=== PATIENT | male | born 1955 | race Two or more races ===

== ENCOUNTER 2017-08-03 16:30 | Emergency (ER) | payer OTHER ==
[2017-08-03] MEDS: HYDROCODONE/APAP (5/325) TAB PO (19:27)
== END 2017-08-03 22:20 | disposition home or self-care (01) ==
LOC: FTE 16:30
DX: S00.93XA Contusion of unspecified part of head, initial encounter (principal); R51 Headache; W22.8XXA Striking against or struck by other objects, initial encounter; Y92.9 Unspecified place or not applicable
CPT/HCPCS: 70450; 99284-25

== ENCOUNTER 2018-08-02 20:08 | Inpatient (IN) | payer OTHER ==
[2018-08-02 20:21] LABS: ADD MAN DIFF? NO
[2018-08-02] MEDS: NITROGLYCERIN (SL) 0.4 MG TAB SL (20:25)
[2018-08-02 20:38] LABS: BASOPHIL # 0.1 10^3/ul (0.0-0.1); BASOPHILS % 0.6 % (0.0-2.0); EOSINOPHILS # 0.1 10^3/ul (0.0-0.5); HEMATOCRIT 43.5 % (42.0-52.0); HEMOGLOBIN 14.4 g/dl (14.0-18.0); LYMPHOCYTES # 3.2 10^3/ul (0.8-2.9); LYMPHOCYTES % 40.8 % (15.0-51.0); MEAN CORPUSCULAR HGB CONC 33.1 g/dl (32.0-37.0); MEAN CORPUSCULAR VOLUME 90.6 fl (82.0-101.0); MEAN PLATELET VOLUME 10.3 fl (7.4-10.4); MONOCYTE # 0.7 10^3/ul (0.3-0.9); MONOCYTES % 9.4 % (0.0-11.0); NEUTROPHIL # 3.7 10^3/ul (1.6-7.5); NEUTROPHILS % 47.7 % (39.0-77.0); PLATELET COUNT 232 10^3/UL (140-415); RED CELL DISTRIBUTION WIDTH 13.3 % (11.5-14.5)
[2018-08-02 20:38] LABS: WHITE BLOOD COUNT 7.7 10^3/ul (4.8-10.8)
[2018-08-02] MEDS ORDERED: NITROGLYCERIN (IC) 100 MCG/ML INJ (20:44)
[2018-08-02] MEDS ORDERED: IODIXANOL LOCM 100 ML BTL (20:44)
[2018-08-02] MEDS ORDERED: HEPARIN 1000 UNITS/ML 10 ML INJ (20:44)
[2018-08-02] MEDS ORDERED: VERAPAMIL 5 MG INJ (20:44)
[2018-08-02] MEDS ORDERED: LIDOCAINE 1% (MDV) 20 ML INJ (20:44)
[2018-08-02] MEDS ORDERED: MIDAZOLAM 1 MG/ML 2 ML INJ ×2 (20:44→21:44)
[2018-08-02] MEDS ORDERED: FENTAnyl 50 MCG/ML VIAL (20:44)
[2018-08-02 20:48] LABS: ANION GAP 15 (5-13); BLOOD UREA NITROGEN 13 mg/dl (7-20); CALCIUM 10.4 mg/dl (8.4-10.2); CARBON DIOXIDE 23 mmol/L (21-31); CHLORIDE 101 mmol/L (97-110); CREATININE 0.67 mg/dl (0.61-1.24); Estimated GFR > 60 mL/min (>60); GLUCOSE 308 mg/dl (70-220); POTASSIUM 3.9 mmol/L (3.5-5.1); SODIUM 139 mmol/L (135-144)
[2018-08-02 21:00] LABS: TROPONIN-I 0.103 ng/ml (0.000-0.120)
[2018-08-02] MEDS ORDERED: BIVALIRUDIN 250MG /NS 50 ML 50 ML IVPB ×2 (21:26)
[2018-08-02] MEDS ORDERED: SOD CHLORIDE 0.9% 500 ML (21:26)
[2018-08-02] MEDS ORDERED: SOD CHLORIDE 0.9% 1,000 ML IV (21:31)
[2018-08-02] MEDS ORDERED: niCARdipine 25 MG INJ (21:35)
[2018-08-02] MEDS ORDERED: DOPamine-D5W 1.6 MG/ML 250 ML (21:50)
[2018-08-02] MEDS ORDERED: morphine 2 MG INJ IV (22:00)
[2018-08-02] MEDS ORDERED: ACETAMINOPHEN 650MG/20.3ML CUP PO (22:00)
[2018-08-02] MEDS ORDERED: BISACODYL (EC) 5 MG TAB PO (22:00)
[2018-08-02] MEDS ORDERED: GLUCOSE GEL 15 GRAM TUBE BUCCAL (22:00)
[2018-08-02] MEDS ORDERED: DEXTROSE 50% 50 ML SYRINGE IV ×2 (22:00)
[2018-08-02] MEDS ORDERED: GLUCOSE GEL 15 GRAM TUBE PO ×2 (22:00)
[2018-08-02] MEDS ORDERED: GLUCAGON 1 MG INJ IM (22:00)
[2018-08-02] MEDS ORDERED: DOCUSATE SODIUM 100 MG CAP PO (22:00)
[2018-08-02] MEDS ORDERED: TICAGRELOR 90 MG TABLET (22:55)
[2018-08-02] MEDS ORDERED: AL HYDROX/MG HYDROX/SIMETH 30 ML CUP PO (23:30)
[2018-08-02] MEDS ORDERED: ACETAMINOPHEN 325 MG TAB PO (23:30)
[2018-08-02] MEDS ORDERED: ZOLPIDEM 5 MG TAB PO (23:30)
[2018-08-02] MEDS ORDERED: ONDANSETRON 4 MG INJ IV (23:30)
[2018-08-02] MEDS ORDERED: OXYCODONE/ACETAMINOPHEN (5/325) TAB PO (23:30)
[2018-08-03] MEDS: BIVALIRUDIN 250MG /NS 50 ML 50 ML IVPB (00:08)
[2018-08-03] MEDS: SOD CHLORIDE 0.9% 1,000 ML IV (00:12)
[2018-08-03] MEDS: TICAGRELOR 90 MG TABLET PO ×3 (00:13→20:47)
[2018-08-03] MEDS: morphine 2 MG INJ IV (01:23)
[2018-08-03] MEDS: INSULIN ASPART [NOVOLOG] 3 ML PEN SC ×6 (01:41→21:00)
[2018-08-03] MEDS ORDERED: ACCU-CHEK XX (02:00)
[2018-08-03] MEDS: NITROGLYCERIN (SL) 0.4 MG TAB SL ×2 (02:13→02:26)
[2018-08-03 03:15] LABS: CREATINE KINASE 1386 IU/L (23-200)
[2018-08-03 03:28] LABS: CK INDEX 4.7
[2018-08-03 05:25] LABS: ADD MAN DIFF? NO
[2018-08-03 05:28] LABS: BASOPHILS % 0.3 % (0.0-2.0); EOSINOPHILS % 0.2 % (0.0-7.0); HEMATOCRIT 35.9 % (42.0-52.0); HEMOGLOBIN 11.8 g/dl (14.0-18.0); LYMPHOCYTES % 8.9 % (15.0-51.0); MEAN CORPUSCULAR HEMOGLOBIN 29.7 pg (29.0-33.0); MEAN CORPUSCULAR HGB CONC 32.9 g/dl (32.0-37.0); MEAN CORPUSCULAR VOLUME 90.4 fl (82.0-101.0); MEAN PLATELET VOLUME 9.7 fl (7.4-10.4); MONOCYTES % 8.4 % (0.0-11.0); NEUTROPHIL # 9.6 10^3/ul (1.6-7.5); NEUTROPHILS % 81.3 % (39.0-77.0); PLATELET COUNT 190 10^3/UL (140-415); RED BLOOD COUNT 3.97 10^6/ul (4.70-6.10); RED CELL DISTRIBUTION WIDTH 13.4 % (11.5-14.5)
[2018-08-03 05:28] LABS: WHITE BLOOD COUNT 11.7 10^3/ul (4.8-10.8)
[2018-08-03] MEDS: PANTOPRAZOLE 40 MG INJ IV (05:44)
[2018-08-03 06:22] LABS: ANION GAP 8 (5-13); BLOOD UREA NITROGEN 10 mg/dl (7-20); CALCIUM 9.1 mg/dl (8.4-10.2); CARBON DIOXIDE 26 mmol/L (21-31); CHLORIDE 104 mmol/L (97-110); CREATINE KINASE 1390 IU/L (23-200); CREATININE 0.57 mg/dl (0.61-1.24); Estimated GFR > 60 mL/min (>60); GLUCOSE 177 mg/dl (70-220); POTASSIUM 3.9 mmol/L (3.5-5.1); SODIUM 138 mmol/L (135-144)
[2018-08-03 06:26] LABS: ALANINE AMINOTRANSFERASE 43 IU/L (13-69); ALBUMIN 3.6 g/dl (3.3-4.9); ALBUMIN/GLOBULIN RATIO 1.44; ALKALINE PHOSPHATASE 50 IU/L (42-121); ANION GAP 8 (5-13); ASPARTATE AMINO TRANSFERASE 186 IU/L (15-46); BILIRUBIN,INDIRECT 0.7 mg/dl (0-1.1); BILIRUBIN,TOTAL 0.7 mg/dl (0.2-1.3); BLOOD UREA NITROGEN 10 mg/dl (7-20); CALCIUM 9.2 mg/dl (8.4-10.2); CARBON DIOXIDE 26 mmol/L (21-31); CHLORIDE 104 mmol/L (97-110); CHOL/HDL RATIO 2.8 RATIO; CHOLESTEROL 125 mg/dl (100-200); CREATININE 0.57 mg/dl (0.61-1.24); Estimated GFR > 60 mL/min (>60); GLUCOSE 176 mg/dl (70-220); HDL CHOLESTEROL 44 mg/dl (30-78); LDL CHOLESTEROL,CALCULATED 62 mg/dl; MAGNESIUM 1.8 mg/dl (1.7-2.5); POTASSIUM 3.8 mmol/L (3.5-5.1); SODIUM 138 mmol/L (135-144); TOTAL PROTEIN 6.1 g/dl (6.1-8.1); TRIGLYCERIDES 97 mg/dl (0-149)
[2018-08-03 07:32] LABS: HEMOGLOBIN A1C 7.7 % (0-5.9)
[2018-08-03] MEDS: ASPIRIN (EC) 81 MG TAB PO (09:06)
[2018-08-03] MEDS: INSULIN GLARGINE [LANTus] (100 UNITS/ML) SYG SC (09:08)
[2018-08-03 09:10] LABS: CREATINE KINASE 1250 IU/L (23-200)
[2018-08-03 09:23] LABS: CK INDEX 4.3
[2018-08-03] MEDS: FUROSEMIDE 20 MG INJ IV ×2 (10:11→17:27)
[2018-08-03] MEDS: ATORVASTATIN 80 MG TAB PO (20:30)
[2018-08-04] MEDS: INSULIN ASPART [NOVOLOG] 3 ML PEN SC ×5 (01:00→20:17)
[2018-08-04] MEDS: FUROSEMIDE 20 MG INJ IV (05:43)
[2018-08-04] MEDS: PANTOPRAZOLE 40 MG INJ IV (05:44)
[2018-08-04 06:09] LABS: ADD MAN DIFF? NO
[2018-08-04 06:17] LABS: WHITE BLOOD COUNT 10.9 10^3/ul (4.8-10.8)
[2018-08-04 06:17] LABS: BASOPHILS % 0.2 % (0.0-2.0); EOSINOPHILS # 0.1 10^3/ul (0.0-0.5); EOSINOPHILS % 0.7 % (0.0-7.0); HEMATOCRIT 42.2 % (42.0-52.0); LYMPHOCYTES # 2.2 10^3/ul (0.8-2.9); LYMPHOCYTES % 20.4 % (15.0-51.0); MEAN CORPUSCULAR HEMOGLOBIN 29.7 pg (29.0-33.0); MEAN CORPUSCULAR HGB CONC 33.2 g/dl (32.0-37.0); MEAN CORPUSCULAR VOLUME 89.6 fl (82.0-101.0); MEAN PLATELET VOLUME 9.9 fl (7.4-10.4); MONOCYTE # 1.4 10^3/ul (0.3-0.9); MONOCYTES % 13.2 % (0.0-11.0); NEUTROPHIL # 7.1 10^3/ul (1.6-7.5); NEUTROPHILS % 64.9 % (39.0-77.0); PLATELET COUNT 220 10^3/UL (140-415); RED BLOOD COUNT 4.71 10^6/ul (4.70-6.10); RED CELL DISTRIBUTION WIDTH 13.6 % (11.5-14.5)
[2018-08-04 06:42] LABS: ALANINE AMINOTRANSFERASE 51 IU/L (13-69); ALBUMIN 4.1 g/dl (3.3-4.9); ALBUMIN/GLOBULIN RATIO 1.46; ALKALINE PHOSPHATASE 49 IU/L (42-121); ANION GAP 8 (5-13); ASPARTATE AMINO TRANSFERASE 104 IU/L (15-46); BILIRUBIN,INDIRECT 1.3 mg/dl (0-1.1); BILIRUBIN,TOTAL 1.3 mg/dl (0.2-1.3); BLOOD UREA NITROGEN 9 mg/dl (7-20); CALCIUM 9.7 mg/dl (8.4-10.2); CARBON DIOXIDE 31 mmol/L (21-31); CHLORIDE 103 mmol/L (97-110); CREATININE 0.73 mg/dl (0.61-1.24); Estimated GFR > 60 mL/min (>60); GLUCOSE 147 mg/dl (70-220); POTASSIUM 4.2 mmol/L (3.5-5.1); SODIUM 142 mmol/L (135-144); TOTAL PROTEIN 6.9 g/dl (6.1-8.1)
[2018-08-04 06:57] LABS: CK INDEX 2.4; CREATINE KINASE 540 IU/L (23-200)
[2018-08-04] MEDS: ASPIRIN (EC) 81 MG TAB PO (08:24)
[2018-08-04] MEDS: TICAGRELOR 90 MG TABLET PO ×2 (08:29→20:20)
[2018-08-04] MEDS: INSULIN GLARGINE [LANTus] (100 UNITS/ML) SYG SC (08:29)
[2018-08-04] MEDS: FUROSEMIDE 20 MG TAB PO (17:41)
[2018-08-04] MEDS: ATORVASTATIN 80 MG TAB PO (20:17)
[2018-08-05] MEDS: ACCU-CHEK XX (02:00)
[2018-08-05 05:59] LABS: ADD MAN DIFF? NO
[2018-08-05] MEDS: PANTOPRAZOLE 40 MG INJ IV (05:59)
[2018-08-05] MEDS: FUROSEMIDE 20 MG TAB PO (06:00)
[2018-08-05 06:03] LABS: WHITE BLOOD COUNT 9.7 10^3/ul (4.8-10.8)
[2018-08-05 06:03] LABS: BASOPHILS % 0.4 % (0.0-2.0); EOSINOPHILS # 0.1 10^3/ul (0.0-0.5); EOSINOPHILS % 1.3 % (0.0-7.0); HEMATOCRIT 40.8 % (42.0-52.0); HEMOGLOBIN 13.4 g/dl (14.0-18.0); LYMPHOCYTES # 1.9 10^3/ul (0.8-2.9); LYMPHOCYTES % 19.7 % (15.0-51.0); MEAN CORPUSCULAR HEMOGLOBIN 29.7 pg (29.0-33.0); MEAN CORPUSCULAR HGB CONC 32.8 g/dl (32.0-37.0); MEAN CORPUSCULAR VOLUME 90.5 fl (82.0-101.0); MEAN PLATELET VOLUME 9.8 fl (7.4-10.4); MONOCYTE # 1.2 10^3/ul (0.3-0.9); MONOCYTES % 12.7 % (0.0-11.0); NEUTROPHIL # 6.3 10^3/ul (1.6-7.5); NEUTROPHILS % 65.1 % (39.0-77.0); PLATELET COUNT 209 10^3/UL (140-415); RED BLOOD COUNT 4.51 10^6/ul (4.70-6.10); RED CELL DISTRIBUTION WIDTH 13.6 % (11.5-14.5)
[2018-08-05 06:58] LABS: ALANINE AMINOTRANSFERASE 35 IU/L (13-69); ALBUMIN/GLOBULIN RATIO 1.37; ALKALINE PHOSPHATASE 48 IU/L (42-121); ANION GAP 11 (5-13); ASPARTATE AMINO TRANSFERASE 48 IU/L (15-46); BILIRUBIN,INDIRECT 0.9 mg/dl (0-1.1); BILIRUBIN,TOTAL 0.9 mg/dl (0.2-1.3); BLOOD UREA NITROGEN 16 mg/dl (7-20); CALCIUM 9.4 mg/dl (8.4-10.2); CARBON DIOXIDE 28 mmol/L (21-31); CHLORIDE 100 mmol/L (97-110); CREATININE 0.76 mg/dl (0.61-1.24); Estimated GFR > 60 mL/min (>60); GLUCOSE 167 mg/dl (70-220); POTASSIUM 3.8 mmol/L (3.5-5.1); SODIUM 139 mmol/L (135-144); TOTAL PROTEIN 6.9 g/dl (6.1-8.1)
[2018-08-05] MEDS: INSULIN ASPART [NOVOLOG] 3 ML PEN SC ×2 (07:55→12:11)
[2018-08-05] MEDS: INSULIN GLARGINE [LANTus] (100 UNITS/ML) SYG SC (08:25)
[2018-08-05] MEDS: LISINOPRIL 5 MG TAB PO (08:27)
[2018-08-05] MEDS: ASPIRIN (EC) 81 MG TAB PO (08:27)
[2018-08-05] MEDS: METOPROLOL (XL) 25 MG TAB PO (08:28)
[2018-08-05] MEDS: TICAGRELOR 90 MG TABLET PO (08:37)
== END 2018-08-05 16:40 | disposition home or self-care (01) | DRG 246 ==
LOC: TEL 08-03 15:25 → E/R 20:08 → ICU 21:49
PROC: 027137Z Dilation of Coronary Artery, Two Arteries with Four or More Drug-eluting Intraluminal Devices, Percutaneous Approach (ICD-10-PCS; principal; 2018-08-02 20:00)
PROC: 4A023N7 Measurement of Cardiac Sampling and Pressure, Left Heart, Percutaneous Approach (ICD-10-PCS; 2018-08-02 20:00)
PROC: B211YZZ Fluoroscopy of Multiple Coronary Arteries using Other Contrast (ICD-10-PCS; 2018-08-02 20:00)
DX: I21.02 ST elevation (STEMI) myocardial infarction involving left anterior descending coronary artery (principal); I50.21 Acute systolic (congestive) heart failure; I42.9 Cardiomyopathy, unspecified; E11.8 Type 2 diabetes mellitus with unspecified complications; I11.0 Hypertensive heart disease with heart failure; I25.10 Atherosclerotic heart disease of native coronary artery without angina pectoris; R00.1 Bradycardia, unspecified
CPT/HCPCS: 36415; 71045; 80048; 80053; 80061; 82306; 82550; 82553; 82962; 83036; 83735; 84443; 84484; 85025; 87081; 93005; 93306; 93458; 99291-25

== ENCOUNTER 2018-09-05 19:59 | Emergency (ER) | payer OTHER ==
[2018-09-05 20:30] LABS: ADD MAN DIFF? NO
[2018-09-05 20:32] LABS: WHITE BLOOD COUNT 7.9 10^3/ul (4.8-10.8)
[2018-09-05 20:32] LABS: BASOPHILS % 0.4 % (0.0-2.0); EOSINOPHILS # 0.1 10^3/ul (0.0-0.5); EOSINOPHILS % 1.1 % (0.0-7.0); HEMATOCRIT 41.7 % (42.0-52.0); HEMOGLOBIN 13.7 g/dl (14.0-18.0); LYMPHOCYTES # 1.8 10^3/ul (0.8-2.9); LYMPHOCYTES % 23.3 % (15.0-51.0); MEAN CORPUSCULAR HEMOGLOBIN 29.7 pg (29.0-33.0); MEAN CORPUSCULAR HGB CONC 32.9 g/dl (32.0-37.0); MEAN CORPUSCULAR VOLUME 90.5 fl (82.0-101.0); MEAN PLATELET VOLUME 9.7 fl (7.4-10.4); MONOCYTE # 0.8 10^3/ul (0.3-0.9); MONOCYTES % 10.4 % (0.0-11.0); NEUTROPHIL # 5.1 10^3/ul (1.6-7.5); NEUTROPHILS % 64.3 % (39.0-77.0); PLATELET COUNT 236 10^3/UL (140-415); RED BLOOD COUNT 4.61 10^6/ul (4.70-6.10); RED CELL DISTRIBUTION WIDTH 13.5 % (11.5-14.5)
[2018-09-05 20:52] LABS: ANION GAP 9 (5-13); BLOOD UREA NITROGEN 16 mg/dl (7-20); CALCIUM 9.7 mg/dl (8.4-10.2); CARBON DIOXIDE 30 mmol/L (21-31); CHLORIDE 104 mmol/L (97-110); CREATININE 0.92 mg/dl (0.61-1.24); Estimated GFR > 60 mL/min (>60); GLUCOSE 130 mg/dl (70-220); SODIUM 143 mmol/L (135-144)
[2018-09-05] MEDS: TICAGRELOR 90 MG TABLET PO (21:02)
[2018-09-05 21:04] LABS: TROPONIN-I < 0.012 ng/ml (0.000-0.120)
[2018-09-05] MEDS ORDERED: ACETAMINOPHEN 325 MG TAB PO (22:00)
[2018-09-05] MEDS ORDERED: ONDANSETRON 4 MG INJ IV (22:00)
== END 2018-09-05 23:31 | disposition left against medical advice (07) ==
LOC: E/R 23:31
DX: R07.89 Other chest pain (principal); I10 Essential (primary) hypertension; F17.210 Nicotine dependence, cigarettes, uncomplicated; R94.31 Abnormal electrocardiogram [ECG] [EKG]; Z79.82 Long term (current) use of aspirin
CPT/HCPCS: 36415; 71045; 80048; 84484; 85025; 93005; 99285-25